=== PATIENT | female | born 1980 | race Caucasian/White ===

== ENCOUNTER 2021-12-17 13:59 | Outpatient (CLI) | payer OTHER, SELFPAY ==
[2021-12-17 14:33] LABS: Chloride* 108 mmol/L (96-114); Potassium* 4.1 mmol/L (3.6-5.1); Sodium* 139 mmol/L (135-149)
[2021-12-17 14:36] LABS: Blood Urea Nitrogen* 19 mg/dL (5-24); Carbon Dioxide* 23 mmol/L (20-32); Cholesterol* 160 mg/dL (90-199); Creatinine* 0.8 mg/dL (0.5-1.5); Estimated Glomerular Filt Rate 95 ml/min
[2021-12-17 14:37] LABS: Calcium* 8.8 mg/dL (8.4-10.6); Glucose* 90 mg/dL (60-115); HDL Cholesterol* 42 mg/dL (>=50); LDL Cholesterol Calculated 92 mg/dL (<100); Triglycerides* 130 mg/dL (40-149)
== END 2021-12-17 14:00 | disposition home or self-care (01) ==
PROVIDERS: PCP Physician Assistant Medical; Visit Provider Physician Assistant Medical
DX: Z00.00 Encounter for general adult medical examination without abnormal findings (principal); Z13.6 Encounter for screening for cardiovascular disorders
CPT/HCPCS: 80048; 80061

== ENCOUNTER 2021-12-25 15:53 | Outpatient (CLI) | payer OTHER, SELFPAY ==
--- NOTE | 2021-12-25 16:15 | CRLHL7_ITS ---
For Patients: As a result of the Cures Act, medical imaging exams and procedure reports are released immediately into your electronic medical record. You may view this report before your referring provider. If you have questions, please contact your health care provider. BILATERAL SCREENING MAMMOGRAM WITH COMPUTER-AIDED DETECTION AND TOMOSYNTHESIS TECHNIQUE: CC and MLO views were obtained. These mammographic images have been obtained using full-field digital technique. These mammographic images were interpreted with the benefit of computer-aided detection. Breast Tomosynthesis was used in this interpretation. COMPARISON FILM: Baseline. FINDINGS: The breasts are extremely dense, which lowers the sensitivity of mammography IMPRESSION: There is no radiographic evidence for malignancy. ASSESSMENT: BI-RADS Category 1: Negative RECOMMENDATION: Routine screening mammogram in 1 year. A lay language report of this examination will be provided to the patient. Aryan Flores M.D. Diagnostic/Musculoskeletal Radiologist [email or web address] Transcribed: 2:05 p.m. PT/Dictated by: Aryan Flores MD @ 12/26/2021 7:53:00 AM (Electronically Signed)
== END 2021-12-25 15:54 | disposition home or self-care (01) ==
LOC: MAMMO 15:53
PROVIDERS: PCP Physician Assistant Medical; Visit Provider Physician Assistant Medical
DX: Z12.31 Encounter for screening mammogram for malignant neoplasm of breast (principal)
CPT/HCPCS: 77063; 77067

== ENCOUNTER 2023-01-09 09:23 | Outpatient (CLI) | payer OTHER, SELFPAY | END 2023-01-09 09:24 | disposition home or self-care (01) | PROVIDERS: PCP Physician Assistant Medical; Visit Provider Physician Assistant Medical | DX: Z00.00 Encounter for general adult medical examination without abnormal findings (principal); N92.0 Excessive and frequent menstruation with regular cycle; R79.89 Other specified abnormal findings of blood chemistry | CPT/HCPCS: 80053; 80061; 84443 ==

== ENCOUNTER 2023-01-13 16:45 | Outpatient (CLI) | payer OTHER, SELFPAY ==
--- NOTE | 2023-01-13 17:00 | CRLHL7_ITS ---
For Patients: As a result of the Century Cures Act, medical imaging exams and procedure reports are released immediately into your electronic medical record. You may view this report before your referring provider. If you have questions, please contact your health care provider. INDICATION: Menorrhagia COMPARISON: Ultrasound of the pelvis from 12/23/2019. FINDINGS: Transvaginal and transabdominal ultrasound examination of the female pelvis was performed. Initial examination is performed with transabdominal technique and transvaginal technique is used for better visualization of the pelvic structures. The uterus is anteverted and is normal in size. It measures 8.9 x 4.6 x 5.2 cm. There are 2 tiny probable myometrium in the superior fundus. The larger fibroid measures 1.3 x 0.8 x 1.2 centimeters. The smaller fibroid measures 0.5 x 0.4 x 0.6 centimeters. The endometrial lining is mildly increased in thickness at 11 mm. The right ovary is normal appearance. The left ovary has a hemorrhagic cyst measuring 1.2 centimeters in diameter. The ovaries are normal in size, the right measuring 3.2 x 1.2 x 1.9 cm and the left measuring 3.0 x 2.0 x 1.9 cm. There is normal color and pulse doppler flow in both ovaries. There is no sign of free fluid in the pelvis. IMPRESSION: Two small fundal fibroids. Mild thickening of the endometrial lining at 11 millimeters, nonspecific. Small hemorrhagic cyst in the left ovary measuring to 1.2 centimeters in diameter. Otherwise normal ultrasound examination of the female pelvis using transvaginal and transabdominal technique. Dictated by Bryce Huffman MD @ 01/14/2023 9:02:44 AM (Electronically Signed)
== END 2023-01-13 16:46 | disposition home or self-care (01) ==
LOC: US 16:46
PROVIDERS: PCP Physician Assistant Medical; Visit Provider Physician Assistant Medical
DX: N92.0 Excessive and frequent menstruation with regular cycle (principal)
CPT/HCPCS: 76830; 76856

== ENCOUNTER 2023-02-25 07:58 | Day surgery (SDC) | payer OTHER, SELFPAY ==
[2023-02-25] VITALS (12 sets, daily range): BP systolic 115–134; BP diastolic 65–84; PULSE 55–78; RESP 14–20; TEMP 36.8–36.9; O2SAT 96–100; BMI 28.3
[2023-02-25 08:37] LABS: Ur HCG Qualitative* Negative (Negative)
[2023-02-25] MEDS: LACTATED RINGERS 1000 ML 1,000 ML 100 ML IV ×2 (08:53→14:25)
[2023-02-25] MEDS: BUPIVACAINE 0.25% 30 ML INJECTION (14:35)
--- NOTE | 2023-02-25 15:07 | W.ANESCHARGE ---
Anesthesia Charges Start Date/Time Anesthesia Start Date: 02/25/23 Anesthesia Start Time: 13:54 Stop Date/Time Anesthesia Stop Date: 02/25/23 Anesthesia Stop Time: 15:23
--- NOTE | 2023-02-25 15:17 | W.PM.GYNPROC ---
Procedure Note Date of procedure: 02/25/23 Pre-op diagnosis: Menorrhagia, Undersired fertility Post-op diagnosis: same Procedure: 1. Hysteroscopy. 2. D&C. 3. Carley endometrial ablation. 4. Laparoscopic bilateral salpingectomies. Anesthesia: GETA Complications: None. Surgeon: Jocelyne Carlos MD Estimated blood loss (mL): 10 Pathology: specimen obtained, sent to pathology (1. Endometrial curettings, 2. Bilateral fallopian tubes) Condition: stable Disposition: PACU Findings: Hysteroscopy: Normal-appearing endometrial cavity. Laparoscopy: Normal uterus, fallopian tubes, and ovaries bilaterally. Procedure Description: PREOPERATIVE DIAGNOSIS: Menorrhagia, Undesired fertility. POSTOPERATIVE DIAGNOSIS: Menorrhagia, Undesired fertility. NAME OF PROCEDURE: 1. Hysteroscopy. 2. D and C. 3. Carley endometrial ablation. 4. Laparoscopic bilateral salpingectomies. SURGEON: Breanna. ANESTHESIA: General endotracheal anesthesia. COMPLICATIONS: None. ESTIMATED BLOOD LOSS: 10 mL. FINDINGS: Hysteroscopy: Normal-appearing endometrial cavity. Laparoscopy: Normal uterus, fallopian tubes, and ovaries bilaterally.. PATHOLOGY SPECIMENS: 1. Endometrial curettings. 2. Bilateral fallopian tubes. PROCEDURE: After obtaining informed consent, the patient was taken to the operating room where she received monitored anesthesia care. She was prepared and draped in the normal sterile fashion, in the dorsal lithotomy position. A diaz catheter was placed and left to gravity drainage. An open-sided bivalve speculum was introduced into the vagina and the cervix visualized. The anterior lip of the cervix was grasped with a single-toothed tenaculum for traction. A paracervical block was then administered using a total of 20 mL of a 50/50 mixture of 0.25% Marcaine and 1% lidocaine plain. The uterus was gently sounded. Sound length was 10 cm. The cervix length was determined to be 4 cm using Hegar dilators, yielding a uterine cavity length of 6 cm. The cervix was gently dilated to a #7 Hegar dilator. A hysteroscope was then advanced under direct visualization through the cervix into the uterine cavity. Sterile normal saline was used as distending medium. The uterine cavity was carefully inspected with the findings noted above. The hysteroscope was then removed. The endometrial lining was then sharply curetted. The Carley device was then set to a cavity length of 6 cm, inserted through the cervical os into the uterine cavity to the level of the fundus, and deployed. The device was sealed against the cervix. The safety checks were then passed x2 and the 2-minute treatment cycle initiated. Following completion of the treatment cycle, the Carley device was removed. The hysteroscope was advanced again into the uterine cavity and the uterine cavity inspected. A good ablation was noted from the internal os to fundus and to the cornua bilaterally. Pictures were taken for documentation purposes. The hysteroscope was removed. A Stypi uterine manipulator was placed. The tenaculum and speculum were removed. I then changed gloves an gown and my attention was turned to the abdomen. The inferior aspect of the umbilical fold was injected with 0.25% Marcaine plain. A 5 mm vertical incision was then made within the umbilical fold using a scalpel. The subcutaneous tissues were bluntly dissected with a Jailene clamp to the fascia. A direct entry technique was used to place a 5 mm laparoscopic port with CO2 gas set to a 5 mmHg. The trocar was removed leaving the sleeve in place. The CO2 gas flow was turned to high flow to achieve pneumoperitoneum. The 5 mm laparoscope was used then to carefully inspect the abdomen and pelvis with findings noted above. Pictures were taken for documentation purposes. The patient was placed in Trendelenburg positioning. Two additional ports were placed in the right (5 mm) and left (11 mm) lower quadrants under direct visualization after first anesthetizing the skin and fascia with 0.25% Marcaine plain. The uterus was elevated using the uterine manipulator. The bowels were gently pushed from the pelvis cephalad. The left fallopian tube was elevated using a graspers. The Olympus Powerseal bipolar device was used to dissect the fallopian tube from its ovarian, blood vessel, broad ligament, and cornual attachments. The tube was removed through the left lower quadrant port. The right fallopian tube was then elevated, and the Olympus Powerseal device was used to dissect that tube from its ovarian, blood vessel, broad ligament, and cornual attachments as well. This tube was also removed through the left lower quadrant port. The left lower quadrant port was removed under direct visualization. The Sim-Cookie device was used to place an interrupted suture of 0 Vicryl to close the fascia. The remaining ports were removed under direct visualization a pneumoperitoneum was allowed to escape. The skin at all 3 port sites was closed in a subcuticular fashion with 4-0 Vicryl. Exofin was then placed over the incisions. The uterine manipulator and Diaz catheter were removed. The patient tolerated the procedure well. Sponge, lap, and needle counts were correct x2. A postoperative debrief was done which confirmed the procedures done, the pathology specimens to be sent, and the EBL. The patient was taken to the recovery room awake and in stable condition.
--- NOTE | 2023-02-25 15:27 | W.ANESCHARGE ---
Anesthesia Charges Start Date/Time Anesthesia Start Date: 02/25/23 Anesthesia Start Time: 13:54 Stop Date/Time Anesthesia Stop Date: 02/25/23 Anesthesia Stop Time: 15:23
[2023-02-25] MEDS: OXYCODONE 5 MG TABLET PO (16:10)
[2023-02-25] MEDS: ACETAMINOPHEN 500 MG TABLET 1000 MG PO (16:23)
== END 2023-02-25 17:17 | disposition home or self-care (01) ==
PROVIDERS: PCP Physician Assistant Medical; Visit Provider Obstetrics & Gynecology
PROC: 0UF98ZZ Fragmentation in Uterus, Via Natural or Artificial Opening Endoscopic (ICD-10-PCS; CPT 58563; principal; 2023-02-25 13:30)
PROC: (CPT 58661; 2023-02-25 13:30)
DX: N92.0 Excessive and frequent menstruation with regular cycle (principal); Z30.2 Encounter for sterilization
CPT/HCPCS: 58563; 58661; 00840; 00851; 81025; 88302; 88305; A9270; J0330; J0665; J1100; J1885; J2250; J2405; J2704; J2710; J3010; J7120

== ENCOUNTER 2023-04-07 09:11 | Outpatient (CLI) | payer OTHER, SELFPAY ==
--- NOTE | 2023-04-07 09:15 | CRLHL7_ITS ---
For Patients: As a result of the Cures Act, medical imaging exams and procedure reports are released immediately into your electronic medical record. You may view this report before your referring provider. If you have questions, please contact your health care provider. BILATERAL SCREENING MAMMOGRAM WITH COMPUTER-AIDED DETECTION AND TOMOSYNTHESIS TECHNIQUE: CC and MLO views were obtained. These mammographic images have been obtained using full-field digital technique. These mammographic images were interpreted with the benefit of computer-aided detection. Breast Tomosynthesis was used in this interpretation. COMPARISON FILM: 12/25/21. FINDINGS: The breasts are heterogeneously dense, which may obscure small masses IMPRESSION: There is no radiographic evidence for malignancy. ASSESSMENT: BI-RADS Category 2: Benign RECOMMENDATION: Routine screening mammogram in 1 year. A lay language report of this examination will be provided to the patient. Cale Ortiz M.D. Diagnostic Radiologist [email or web address] / be/Dictated by: Cale Ortiz MD @ 04/07/2023 10:00:00 AM (Electronically Signed)
== END 2023-04-07 09:12 | disposition home or self-care (01) ==
LOC: MAMMO 09:12
PROVIDERS: PCP Physician Assistant Medical; Visit Provider Physician Assistant Medical
DX: Z12.31 Encounter for screening mammogram for malignant neoplasm of breast (principal); R92.2 Inconclusive mammogram
CPT/HCPCS: 77063; 77067

== ENCOUNTER 2024-06-21 15:12 | Outpatient (CLI) | payer OTHER, SELFPAY ==
--- NOTE | 2024-06-21 15:20 | CRLHL7_ITS ---
For Patients: As a result of the Cures Act, medical imaging exams and procedure reports are released immediately into your electronic medical record. You may view this report before your referring provider. If you have questions, please contact your health care provider. BILATERAL SCREENING MAMMOGRAM WITH COMPUTER-AIDED DETECTION AND TOMOSYNTHESIS TECHNIQUE: CC and MLO views were obtained. These mammographic images have been obtained using full-field digital technique. These mammographic images were interpreted with the benefit of computer-aided detection. Breast Tomosynthesis was used in this interpretation. COMPARISON FILM: 04/07/23, 12/25/21. FINDINGS: The breasts are heterogeneously dense, which may obscure small masses IMPRESSION: There is no radiographic evidence for malignancy. ASSESSMENT: BI-RADS Category 1: Negative RECOMMENDATION: Routine screening mammogram in 1 year. A lay language report of this examination will be provided to the patient. Cale Ortiz M.D. Diagnostic Radiologist [email or web address]/[email or web address] Transcribed: 2:56 p.mSarkis malloy/Dictated by: Cale Ortiz MD @ 06/22/2024 12:25:00 PM (Electronically Signed)
== END 2024-06-21 15:13 | disposition home or self-care (01) ==
LOC: MAMMO 15:13
PROVIDERS: PCP Physician Assistant Medical; Visit Provider Physician Assistant Medical
DX: Z12.31 Encounter for screening mammogram for malignant neoplasm of breast (principal); R92.333 Mammographic heterogeneous density, bilateral breasts
CPT/HCPCS: 77063; 77067